=== PATIENT | female | born 1995 | race Caucasian/White ===

== ENCOUNTER 2019-03-22 20:15 | Emergency (ER) | payer MEDICAID, SELFPAY ==
[2019-03-22 20:16] VITALS: BP 122/82; PULSE 113; RESP 15; TEMP 36.8; O2SAT 97; BMI 28.3
--- NOTE | 2019-03-22 20:48 | CM.ED ---
SOCIAL WORK DISCUSSED CASE WITH DR. SHAY. PLAN FOR CRISIS TO EVALUATE ONCE MEDICALLY CLEARED. PATIENT WITH PLAN TO JUMP OFF A BRIDGE. PATIENT BROUGHT IN BY POLICE. Jose Alejandro ARTIS, [employer], P[employer]ED [employer]CR[employer] WALL TECHNICIAN.
[2019-03-22 21:01] LABS: Internal QC Validated? YES +Cl - CLEAR BKGD
[2019-03-22 21:07] LABS: Absolute Lymphocyte Count 1.41 X10^3/uL (0.83-4.51); Absolute Neutrophil Count 4.5 X10^3/uL (2.0-7.7); Basophil# 0.04 X10^3/uL; Basophil% 0.6 % (0-1); Eosinophil# 0.01 X10^3/uL; Eosinophils% 0.2 % (0-5); Hematocrit 43.8 % (37-47); Hemoglobin 14.5 g/dL (12.0-15.0); Lymphocyte # 1.41 X10^3/ul (4.0); Lymphocyte % 21.9 % (19-41); Mean Corp Hgb Conc 33.1 g/dL (32-36); Mean Corpuscular Hgb 28.5 pg (27.0-32.0); Mean Corpuscular Volume 86.1 fL (81-99); Mean Platelet Vol. 9.4 fl (6.2-12.0); Monocyte# 0.41 X10^3/uL; Monocyte% 6.4 % (0-10); NRBC Flagged by Analyzer 0 % (0-5); Neutrophil # 4.54 X10^3/uL (2.7-7.7); Neutrophil % 70.4 % (47-70); Platelet Count 298 K/mm3 (150-450); RBC Distribution Width CV 11.9 % (11.6-14.6); RBC Distribution Width SD 37.1 fl (35.1-43.9); Red Blood Count 5.09 M/mm3 (4.2-5.4); White Blood Count 6.4 K/mm3 (4.4-11.0)
[2019-03-22 21:12] LABS: Pregnancy, Serum, hCG Quali. NEGATIVE Negative
[2019-03-22 21:17] LABS: Anion Gap 7 (5-15); BUN 10 mg/dL (7-18); BUN/Creat Ratio 12.9 RATIO (10-20); Calcium,Total 9.4 mg/dL (8.5-10.1); Chloride 107 mmol/L (98-107); Creatinine, Serum 0.78 mg/dL (0.55-1.02); EST Glomerular Filtration Rate 98 mL/min (>60); Est Glom Filt Rate - Afr Amer 119 mL/min (>60); Estimated Creatinine Clearance 97.69 ml/min; Glucose 96 mg/dL (74-106); Potassium 3.2 mmol/L (3.5-5.1); Sodium Level 140 mmol/L (136-145)
[2019-03-22 21:23] LABS: Alcohol, Blood (Medical)-Serum < 3.0 mg/dL
[2019-03-22 21:58] LABS: Salicylate < 1.7 mg/dL (2.8-20.0)
[2019-03-22 22:00] VITALS: RESP 14
[2019-03-22 22:12] LABS: Acetaminophen (Tylenol) Level < 2.0 ug/mL (10.0-30.0)
--- NOTE | 2019-03-22 22:33 | NURSING ---
TALKED TO KIMBERLEY FROM CRISIS AT [id number] AND SHE SAID SHE WOULD BE HERE WITHIN AN HOUR
[2019-03-22 22:35] LABS: Color, Urine Yellow (Yellow); Glucose, Dipstick Normal (Normal); Leukocyte Esterase-Dipstick Negative /ul (Negative); Nitrite-Dipstick Negative (Negative); Occult Blood-Urine 25 /ul (Negative); Protein-Dipstick 15 mg/dl (Negative); Specific Gravity, Urine 1.015 (1.002-1.030); Urine Bilirubin Dipstick Negative (Negative); Urine Clarity Cloudy (Clear); Urine Urobilinogen Normal (Normal); Urine pH 6.5 (5.0 - 8.0)
[2019-03-22 22:57] LABS: Ketone-Dipstick 150 mg/dl (Negative)
[2019-03-22 23:00] VITALS: RESP 16
[2019-03-22 23:00] LABS: Bacteria 2+ /hpf (None Seen); Mucous, Urine 1+ /hpf (<or=2+); Red Blood Cells-Urine 0-5 SEEN /hpf (0-5); Squamous Epithelial Cells - UA 5-10 SEEN /hpf (5-10); White Blood Cells 0-5 SEEN /hpf (0-5)
[2019-03-22 23:06] LABS: Amphetamine Urine VISTA NEGATIVE (<1000 ng/mL); Barbiturate Urine VISTA NEGATIVE (< 200 ng/mL); Benzodiazepine Urine VISTA NEGATIVE (< 200 ng/mL); Cocaine Urine VISTA NEGATIVE (< 300 ng/mL); Ecstacy Urine VISTA NEGATIVE (< 500 ng/mL); Methadone Urine VISTA NEGATIVE (< 300 ng/mL); PCP Urine VISTA NEGATIVE (< 25 ng/mL); THC Urine VISTA NEGATIVE (< 50 ng/mL); Vista UDS pH Range 6
--- NOTE | 2019-03-22 23:11 | ED.DCSUM_ITS ---
History of Present Illness Chief Complaint: Suicidal Informant: Patient Onset: Today Context: Gradual Onset Narrative: She is a 23-year-old female with history of anxiety depression presenting for suicidal ideations. Patient was brought in by local police that she was found on a bridge and was contemplating jumping to her . Patient states she has been more depressed lately and when she was unable to get a hold of her friend who was at [facility] she thought of killing herself. Patient states she still feels overwhelmed and wants to . She has a prior history of suicidal ideation and psychiatric hospitalization year to go. Patient states she can no longer afford a counselor so she is not seeing one. She denies any hallucinations or homicidal ideations. Patient feels that she does not have anyone to talk to her to support her. She states she feels lonely. She denies any physical complaints. Her last menstrual period was 2 weeks ago. Past Medical History - Allergies and Home Meds Allergies/Adverse Reactions: Allergies No Known Allergies Allergy (Verified 03/22/19 20:20) Primary Care Physician: Naldo Thrasher [Primary Care Provider] - Prior records reviewed: Yes Past Medical History: - - Depression Surgical History: noncontributory Smoking Status: Never smoker Review of Systems All systems negative except as indicated Psych: Reports: Depression, Suicidal thoughts, Suicidal ideations Physical Exam Vital Signs/Narrative: Vital Signs Temp Pulse Resp BP Pulse Ox 03/22/19 22:00 14 03/22/19 20:16 98.2 F 113 H 15 122/82 H 97 Inital Vital Signs reviewed: Yes General: Well nourished, Well developed, No Acute Distress Head: Normocephalic, Atraumatic Eyes: Perrl, EOMI ENT: No rhinorrhea, Dry mucous membranes Neck: Supple, Nontender Cardiovascular: Regular rate, Regular rhythm, No murmurs Respiratory: No distress, CTA bilaterally, Chest nontender Abdomen: Soft, Nontender, Nondistended, Normal bowel sounds Back: Nontender, Normal Inspection Extremities: Nontender, No edema Skin: Normal color, No rash Neurological: Alert, Oriented x3, Cranial nerves II-XII grossly intact, Normal Strength, Normal Sensation Psychological: Depressed, Tearful, - - Admits to suicidal ideations and wanting to jump off a bridge to kill herself Diagnostic/Tx/Re-eval Laboratory Data 03/22/19 03/22/19 03/22/19 20:57 20:57 20:57 WBC 6.4 RBC 5.09 Hgb 14.5 Hct 43.8 MCV 86.1 MCH 28.5 MCHC 33.1 RDW Std Deviation 37.1 RDW Coeff of Manda 11.9 Plt Count 298 MPV 9.4 Immature Gran % (Auto) 0.500 Neut % (Auto) 70.4 H Lymph % (Auto) 21.9 [place] % (Auto) 6.4 Eos % (Auto) 0.2 Baso % (Auto) 0.6 Absolute Neuts (auto) 4.5 Absolute Lymphs (auto) 1.41 Nucleated RBC % 0 Sodium 140 Potassium 3.2 L Chloride 107 Carbon Dioxide 26.0 Anion Gap 7 BUN 10 Creatinine 0.78 Estim Creat Clear Calc 97.69 Est GFR (MDRD) Af Amer 119 Est GFR (MDRD) Non-Af 98 BUN/Creatinine Ratio 12.9 Glucose 96 Calcium 9.4 Serum , Qual Urine Color Urine Clarity Urine pH Ur Specific [place] Urine Protein Urine Glucose (UA) Urine Ketones Urine Occult Blood Urine Nitrite Urine Bilirubin Urine Urobilinogen Ur Leukocyte Esterase Urine RBC Urine WBC Ur Squamous Epith Cells Urine Bacteria Urine Mucus Salicylates Urine Opiates Screen Urine Methadone Screen Acetaminophen Ur Barbiturates Screen Ur Phencyclidine Scrn Ur Amphetamines Screen U Methamphetamin-MDMA U Benzodiazepines Scrn Urine Cocaine Screen U Cannabinoids Screen Ur Drug Screen Comment Ethyl Alcohol < 3.0 03/22/19 03/22/19 03/22/19 20:57 20:57 22:25 WBC RBC Hgb Hct MCV MCH MCHC RDW Std Deviation RDW Coeff of Manda Plt Count MPV Immature Gran % (Auto) Neut % (Auto) Lymph % (Auto) [place] % (Auto) Eos % (Auto) Baso % (Auto) Absolute Neuts (auto) Absolute Lymphs (auto) Nucleated RBC % Sodium Potassium Chloride Carbon Dioxide Anion Gap BUN Creatinine Estim Creat Clear Calc Est GFR (MDRD) Af Amer Est GFR (MDRD) Non-Af BUN/Creatinine Ratio Glucose Calcium Serum , Qual NEGATIVE Urine Color Urine Clarity Urine pH Ur Specific [place] Urine Protein Urine Glucose (UA) Urine Ketones Urine Occult Blood Urine Nitrite Urine Bilirubin Urine Urobilinogen Ur Leukocyte Esterase Urine RBC Urine WBC Ur Squamous Epith Cells Urine Bacteria Urine Mucus Salicylates < 1.7 L Urine Opiates Screen NEGATIVE Urine Methadone Screen NEGATIVE Acetaminophen < 2.0 L Ur Barbiturates Screen NEGATIVE Ur Phencyclidine Scrn NEGATIVE Ur Amphetamines Screen NEGATIVE U Methamphetamin-MDMA NEGATIVE U Benzodiazepines Scrn NEGATIVE Urine Cocaine Screen NEGATIVE U Cannabinoids Screen NEGATIVE Ur Drug Screen Comment Ethyl Alcohol 03/22/19 22:25 WBC RBC Hgb Hct MCV MCH MCHC RDW Std Deviation RDW Coeff of Manda Plt Count MPV Immature Gran % (Auto) Neut % (Auto) Lymph % (Auto) [place] % (Auto) Eos % (Auto) Baso % (Auto) Absolute Neuts (auto) Absolute Lymphs (auto) Nucleated RBC % Sodium Potassium Chloride Carbon Dioxide Anion Gap BUN Creatinine Estim Creat Clear Calc Est GFR (MDRD) Af Amer Est GFR (MDRD) Non-Af BUN/Creatinine Ratio Glucose Calcium Serum , Qual Urine Color Yellow Urine Clarity Cloudy Urine pH 6.5 Ur Specific [place] 1.015 Urine Protein 15 H Urine Glucose (UA) Normal Urine Ketones 150 H Urine Occult Blood 25 H Urine Nitrite Negative Urine Bilirubin Negative Urine Urobilinogen Normal Ur Leukocyte Esterase Negative Urine RBC 0-5 SEEN Urine WBC 0-5 SEEN Ur Squamous Epith Cells 5-10 SEEN Urine Bacteria 2+ Urine Mucus 1+ Salicylates Urine Opiates Screen Urine Methadone Screen Acetaminophen Ur Barbiturates Screen Ur Phencyclidine Scrn Ur Amphetamines Screen U Methamphetamin-MDMA U Benzodiazepines Scrn Urine Cocaine Screen U Cannabinoids Screen Ur Drug Screen Comment Ethyl Alcohol - Medical Decision Making Patient is evaluated for suicidal ideations. Patient was [place] a bridge by police and states she was thinking of killing herself. She was seen in the rain and crying. Patient admits to this in the ER. She is cooperative. She is medically cleared. [place] slip was filed by police prior to arrival. Patient to be evaluated by crisis for final disposition. Crisis agrees that patient requires inpatient psychiatric admission. [place] slip is filled out. Patient was signed out to oncoming provider pending accepting facility. ED Disposition - Plan for ED Patient: Diagnosis: Suicidal ideations Instructions: Depression Referrals: Naldo Thrasher [Primary Care Provider] -
[2019-03-23] VITALS: RESP 14
[2019-03-23 01:00] VITALS: RESP 16
[2019-03-23 02:00] VITALS: RESP 16
--- NOTE | 2019-03-23 02:00 | ED.RN ---
patient has been accepted at [facility] [phone] ext [phone]
[2019-03-23 03:00] VITALS: BP 104/80; PULSE 92; RESP 15; TEMP 36.8; O2SAT 97
--- NOTE | 2019-03-23 03:10 | ED.RN ---
ananda fitzgerald will here in 1 to 1.5 hours for transport
[2019-03-23 03:37] VITALS: BP 104/80; PULSE 92; RESP 15; TEMP 36.8; O2SAT 98
== END 2019-03-23 04:26 ==
PROVIDERS: Emergency Provider Emergency Medicine; Family Provider Internal Medicine Cardiovascular Disease; PCP Internal Medicine Cardiovascular Disease
DX: F32.9 Major depressive disorder, single episode, unspecified (principal); R45.851 Suicidal ideations; F41.9 Anxiety disorder, unspecified
CPT/HCPCS: 80048; 80307; 80320; 80329; 81001; 84703; 85025; 99284; G0480